=== PATIENT | female | born 1990 | race Caucasian/White ===

== ENCOUNTER 2018-10-01 15:11 | Emergency (ER) | payer BC ==
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
[2018-10-01 17:00] LABS: CHLORIDE,CL 104 mmol/L (98-107); SODIUM,NA 139 mmol/L (136-145)
--- NOTE | 2018-10-01 17:16 | US ---
INDICATION: Early . Bleeding TECHNIQUE: Ultrasound OB pelvis transvaginal. Real-time llanes-scale imaging of the pelvis was performed. COMPARISON: None available FINDINGS: The uterus is retroverted. The endometrium measures 1.2 cm, demonstrating heterogeneous echogenicity, containing mixed echogenicity material with foci of fluid. No discrete intrauterine gestational sac is seen. The right ovary measures 2.6 x 1.7 x 2.7 cm and the left ovary measures 3.0 x 1.3 x 2.6 cm. No adnexal mass is visualized. No significant free fluid is seen. IMPRESSION: No intrauterine gestation seen. Heterogeneous endometrium containing foci of fluid echogenicity. The findings could represent a spontaneous in progress, however an ectopic gestation, or somewhat less likely, an early viable intrauterine gestation, are not excluded. Correlate with beta hCG levels and short-term follow-up study. Dictated by Enrique Llanos MD @ 10/01/2018 5:10:47 PM Dictated by: Enrique Llanos MD @ 10/01/2018 17:13:24 (Electronically Signed)
[2018-10-01 18:33] VITALS: BP 110/67
== END 2018-10-01 18:22 | disposition home or self-care (01) ==
LOC: MW.ED 15:11
DX: O20.0 Threatened abortion (principal); Z3A.10 10 weeks gestation of pregnancy
CPT/HCPCS: 36415; 76801; 80053; 81001; 81025; 84702; 85025; 86850; 86900; 86901; 96372; 99284; J2792; 36430

== ENCOUNTER 2019-09-03 01:31 | Inpatient (IN) | payer BC ==
[2019-09-03] MEDS ORDERED: Sodium Chloride 0.9% 10 ML Syringe FLUSH PRN (01:39)
[2019-09-03] MEDS ORDERED: Sodium Chloride 0.9% 2.5 ML Syringe FLUSH PRN (01:39)
[2019-09-03] MEDS ORDERED: Lactated Ringers 1,000 ML IV ONE (01:39)
[2019-09-03] MEDS ORDERED: Oxytocin/0.9 % Sodium Chloride 30 UNIT/500 ML BAG IV SCH (01:45)
[2019-09-03] MEDS ORDERED: Morphine 4 MG/ML Syringe ONE (01:57)
[2019-09-03] MEDS ORDERED: Morphine 2 MG/ML SYRINGE IVPUSH ONE (01:57)
[2019-09-03] MEDS ORDERED: Oxytocin/0.9 % Sodium Chloride 30 UNIT/500 ML BAG ONE (02:00)
[2019-09-03] MEDS ORDERED: Ampicillin/Sulbactam Na 3 GM Vial ONE (02:01)
--- NOTE | 2019-09-03 02:01 | EDM.PDOC ---
ED HPI GENERAL MEDICAL PROBLEM - General Stated Complaint: RECENTLY HAD BABY; SEIZURES Time Seen by Provider: 09/03/19 01:35 Source of Information: Reports: EMS History Limitations: Reports: No Limitations - History of Present Illness INITIAL COMMENTS - FREE TEXT/NARRATIVE: 28-year-old female presents with hemorrhage. She delivered at 43 weeks 1 hour prior to arrival by antenna design engineer. She has not had OB work-up. She was reported to have 2 episodes of seizure, 1 of which was witnessed by EMS lasting about 1 minute. EMS noted large quantity of blood at the delivery site, the placenta was not delivered. HR = 130s with BP = 156/84 on scene. She denies history of seizures. She started laboring yesterday. ROS: A 10-point review of systems, other than pertinent positives and negatives as stated per HPI, is otherwise negative PHYSICAL EXAM General: AOx4, GCS = 15, mild distress HEENT: dry mucous membrane skin: pale Neck: supple, no meningismus, no Kernig or Brudzinski Cardiac: S1S2 tachycardic Respiratory: CTAB, no crackles or rales, no wheezing Abdomen: Soft, nontender, no rebound or guarding, nondistended, no pulsatile mass. : placenta not delivered. 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 ED EXAM - Physical Exam Exam: See Below Course - Vital Signs Last Recorded V/S: Last Vital Signs Temp 97.8 F 09/03/19 02:07 Pulse 133 H 09/03/19 02:07 Resp 28 H 09/03/19 02:07 BP 70/43 L 09/03/19 02:07 Pulse Ox 94 L 09/03/19 02:07 - Orders/Labs/Meds Orders: Active Orders 24 hr Category Date Time Status CORONAVIRUS COVID-19 PCR PHL Stat Lab 09/03/19 01:39 Ordered CULTURE BLOOD [BC] Stat Lab 09/03/19 02:34 Ordered CULTURE BLOOD [BC] Stat Lab 09/03/19 02:34 Ordered LACTIC ACID,WHOLE BLOOD [BG] Stat Lab 09/03/19 02:34 Ordered RED BLOOD CELLS APH2 LR [BBK] Stat Lab 09/03/19 01:37 Results RED BLOOD CELLS LP [BBK] Stat Lab 09/03/19 01:37 Results TYPE AND SCREEN [BBK] Stat Lab 09/03/19 01:37 Results Oxytocin/0.9 % Sodium Chloride [Oxytocin 30 Unit/500 ML Med 09/03/19 01:45 Active -NS] 30 unit in 500 ml IV TITRATE Sodium Chloride 0.9% [Saline Flush] Med 09/03/19 01:39 Active 10 ml FLUSH ASDIRECTED PRN Sodium Chloride 0.9% [Saline Flush] Med 09/03/19 01:39 Active 2.5 ml FLUSH ASDIRECTED PRN Blood Culture x2 Reflex Set [OM.PC] Stat Oth 09/03/19 02:34 Ordered Saline Lock Insert [OM.PC] Stat Oth 09/03/19 01:39 Ordered Medication Orders Oxytocin/Sodium Chloride (Oxytocin 30 Unit/500 Ml-Ns) 30 unit in 500 mls @ 2 mls/hr IV TITRATE MIKEL; Protocol Sodium Chloride (Saline Flush) 10 ml FLUSH ASDIRECTED PRN PRN Reason: Keep Vein Open Sodium Chloride (Saline Flush) 2.5 ml FLUSH ASDIRECTED PRN PRN Reason: Keep Vein Open Labs: Laboratory Tests 09/03/19 09/03/19 09/03/19 Range/Units 01:37 01:37 01:37 WBC 21.99 H (4.0-11.0) K/uL RBC 3.37 L (4.30-5.90) M/uL Hgb 10.5 L (12.0-16.0) g/dL Hct 31.6 L (36.0-46.0) % MCV 93.8 (80.0-98.0) fL MCH 31.2 (27.0-32.0) pg MCHC 33.2 (31.0-37.0) g/dL RDW Std Deviation 49.3 (28.0-62.0) fl RDW Coeff of Fahad 14 (11.0-15.0) % Plt Count 216 (150-400) K/uL MPV 11.60 (7.40-12.00) fL Neut % (Auto) 85.5 H (48.0-80.0) % Lymph % (Auto) 8.7 L (16.0-40.0) % [place] % (Auto) 5.8 (0.0-15.0) % Eos % (Auto) 0.0 (0.0-7.0) % Baso % (Auto) 0.0 (0.0-1.5) % Neut # (Auto) 18.8 H (1.4-5.7) K/uL Lymph # (Auto) 1.9 (0.6-2.4) K/uL [place] # (Auto) 1.3 H (0.0-0.8) K/uL Eos # (Auto) 0.0 (0.0-0.7) K/uL Baso # (Auto) 0.0 (0.0-0.1) K/uL Nucleated RBC % 0.0 /100WBC Nucleated RBCs # 0 K/uL INR 0.94 APTT 23.1 (18.6-31.3) SEC Sodium 132 L (136-145) mmol/L Potassium 3.7 (3.5-5.1) mmol/L Chloride 100 (98-107) mmol/L Carbon Dioxide 17.0 L (21.0-32.0) mmol/L BUN 7 (7.0-18.0) mg/dL Creatinine 1.0 (0.6-1.0) mg/dL Est Cr Clr Drug Dosing TNP Estimated GFR (MDRD) > 60.0 ml/min Glucose 182 H (74-106) mg/dL Calcium 8.6 (8.5-10.1) mg/dL Phosphorus 4.5 (2.6-4.7) mg/dL Magnesium 1.6 L (1.8-2.4) mg/dL Total Bilirubin 0.4 (0.2-1.0) mg/dL AST 27 (15-37) IU/L ALT 27 (14-63) IU/L Alkaline Phosphatase 174 H (46-116) U/L Total Protein 5.4 L (6.4-8.2) g/dL Albumin 2.2 L (3.4-5.0) g/dL Globulin 3.2 (2.6-4.0) g/dL Albumin/Globulin Ratio 0.7 L (0.9-1.6) Blood Type Antibody Screen Crossmatch 09/03/19 Range/Units 01:37 WBC (4.0-11.0) K/uL RBC (4.30-5.90) M/uL Hgb (12.0-16.0) g/dL Hct (36.0-46.0) % MCV (80.0-98.0) fL MCH (27.0-32.0) pg MCHC (31.0-37.0) g/dL RDW Std Deviation (28.0-62.0) fl RDW Coeff of Fahad (11.0-15.0) % Plt Count (150-400) K/uL MPV (7.40-12.00) fL Neut % (Auto) (48.0-80.0) % Lymph % (Auto) (16.0-40.0) % [place] % (Auto) (0.0-15.0) % Eos % (Auto) (0.0-7.0) % Baso % (Auto) (0.0-1.5) % Neut # (Auto) (1.4-5.7) K/uL Lymph # (Auto) (0.6-2.4) K/uL [place] # (Auto) (0.0-0.8) K/uL Eos # (Auto) (0.0-0.7) K/uL Baso # (Auto) (0.0-0.1) K/uL Nucleated RBC % /100WBC Nucleated RBCs # K/uL INR APTT (18.6-31.3) SEC Sodium (136-145) mmol/L Potassium (3.5-5.1) mmol/L Chloride (98-107) mmol/L Carbon Dioxide (21.0-32.0) mmol/L BUN (7.0-18.0) mg/dL Creatinine (0.6-1.0) mg/dL Est Cr Clr Drug Dosing Estimated GFR (MDRD) ml/min Glucose (74-106) mg/dL Calcium (8.5-10.1) mg/dL Phosphorus (2.6-4.7) mg/dL Magnesium (1.8-2.4) mg/dL Total Bilirubin (0.2-1.0) mg/dL AST (15-37) IU/L ALT (14-63) IU/L Alkaline Phosphatase (46-116) U/L Total Protein (6.4-8.2) g/dL Albumin (3.4-5.0) g/dL Globulin (2.6-4.0) g/dL Albumin/Globulin Ratio (0.9-1.6) Blood Type O NEGATIVE Antibody Screen NEGATIVE Crossmatch See Detail Meds: Medications Generic Name Dose Route Start Last Admin Trade Name Freq PRN Reason Stop Dose Admin Oxytocin/Sodium Chloride 30 unit in 500 mls @ 2 mls/hr 09/03/19 01:45 Oxytocin 30 Unit/500 Ml-Ns IV TITRATE MIKEL Protocol 2 MUNITS/MIN Sodium Chloride 10 ml 09/03/19 01:39 Saline Flush FLUSH ASDIRECTED PRN Keep Vein Open Sodium Chloride 2.5 ml 09/03/19 01:39 Saline Flush FLUSH ASDIRECTED PRN Keep Vein Open Discontinued Medications Generic Name Dose Route Start Last Admin Trade Name Freq PRN Reason Stop Dose Admin Ampicillin Sodium/Sulbactam Sodium Confirm 09/03/19 02:01 Unasyn Administered 09/03/19 02:02 Dose 3 gm .ROUTE .STK-MED ONE Lactated Ringer's 1,000 mls @ 999 mls/hr 09/03/19 01:39 Ringers, Lactated IV 09/03/19 02:39 .BOLUS ONE Oxytocin/Sodium Chloride Confirm 09/03/19 02:00 Oxytocin 30 Unit/500 Ml-Ns Administered 09/03/19 02:01 Dose 30 unit in 500 mls @ as directed .ROUTE .STK-MED ONE Sodium Chloride Confirm 09/03/19 02:03 Normal Saline Administered 09/03/19 02:04 Dose 50 mls @ as directed .ROUTE .STK-MED ONE Sodium Chloride Confirm 09/03/19 02:03 Normal Saline Administered 09/03/19 02:04 Dose 100 mls @ as directed .ROUTE .STK-MED ONE Lidocaine HCl Confirm 09/03/19 02:16 Xylocaine 1% Administered 09/03/19 02:17 Dose 50 ml .ROUTE .STK-MED ONE Morphine Sulfate 2 mg 09/03/19 01:57 Morphine IVPUSH 09/03/19 01:58 ONETIME ONE Morphine Sulfate Confirm 09/03/19 01:57 Morphine Administered 09/03/19 01:58 Dose 4 mg .ROUTE .STK-MED ONE - Re-Assessments/Exams Free Text/Narrative Re-Assessment/Exam: 09/03/19 01:36 - Consulted OB, Dr. Rudd, she is on the way into the ER. Patient started on 2L IV fluids through rapid infuser, Methergine 0.2mg IM. 09/03/19 01:40 - Placenta delivered intact by OB RN. 09/03/19 01:45 - Given Pitocin 10mg IM, started on 1U O negative bloord. 09/03/19 01:56 - Started on 1gm IV TXA. 09/03/19 02:48 - case discussed with Dr. Rudd, who agrees to admit to observation and assume care at this point. She did repair a grade 2 vaginal tear. Her documentation supersedes all other documentation on this patient with regard to any conflicts or discrepancies from this point forward. Any emergency conditions have been treated to the ability of the ED prior to admission. Departure - Discharge Information Referrals: PCP,None [Primary Care Provider] - Critical Care Note - Critical Care Note Total Time (mins): 76 Comments: Critical Care: The high probability of sudden, clinically significant deterioration in the patient's condition required the highest level of my preparedness to intervene urgently. The services I provided to this patient were to treat and/or prevent clinically significant deterioration. Services included the following: chart data review, reviewing nursing notes and/or old charts, documentation time, rehab consultant collaboration regarding findings and treatment options, medication orders and management, direct patient care, vital sign assessments and ordering, interpreting and reviewing diagnostic studies/lab tests. Aggregate critical care time includes only time during which I was engaged in work directly related to the patient's care, as described above, whether at the bedside or elsewhere in the Emergency Department. It did not include time spent performing other reported procedures or the services of residents, students, nurses or physician assistants. Frequent interventions and/or frequent repeat evaluations were required as well as counseling and coordination of care regarding prognosis, treatments, and discussions with patient, staff and consultants. Sepsis Event Note (ED) - Focused Exam Vital Signs: Vital Signs Temp Pulse Resp BP Pulse Ox 09/03/19 02:07 97.8 F 133 H 28 H 70/43 L 94 L - My Orders Last 24 Hours: My Active Orders 09/03/19 01:37 RED BLOOD CELLS APH2 LR [BBK] Stat RED BLOOD CELLS LP [BBK] Stat TYPE AND SCREEN [BBK] Stat 09/03/19 01:39 CORONAVIRUS COVID-19 PCR PHL Stat Sodium Chloride 0.9% [Saline Flush] 10 ml FLUSH ASDIRECTED PRN Sodium Chloride 0.9% [Saline Flush] 2.5 ml FLUSH ASDIRECTED PRN Saline Lock Insert [OM.PC] Stat 09/03/19 01:45 Oxytocin/0.9 % Sodium Chloride [Oxytocin 30 Unit/500 ML-NS] 30 unit in 500 ml IV TITRATE 09/03/19 02:34 CULTURE BLOOD [BC] Stat CULTURE BLOOD [BC] Stat LACTIC ACID,WHOLE BLOOD [BG] Stat Blood Culture x2 Reflex Set [OM.PC] Stat - Assessment/Plan Last 24 Hours: My Active Orders 09/03/19 01:37 RED BLOOD CELLS APH2 LR [BBK] Stat RED BLOOD CELLS LP [BBK] Stat TYPE AND SCREEN [BBK] Stat 09/03/19 01:39 CORONAVIRUS COVID-19 PCR PHL Stat Sodium Chloride 0.9% [Saline Flush] 10 ml FLUSH ASDIRECTED PRN Sodium Chloride 0.9% [Saline Flush] 2.5 ml FLUSH ASDIRECTED PRN Saline Lock Insert [OM.PC] Stat 09/03/19 01:45 Oxytocin/0.9 % Sodium Chloride [Oxytocin 30 Unit/500 ML-NS] 30 unit in 500 ml IV TITRATE 09/03/19 02:34 CULTURE BLOOD [BC] Stat CULTURE BLOOD [BC] Stat LACTIC ACID,WHOLE BLOOD [BG] Stat Blood Culture x2 Reflex Set [OM.PC] Stat
[2019-09-03] MEDS ORDERED: Sodium Chloride 0.9% 0 ML ONE (02:03)
[2019-09-03] MEDS ORDERED: Sodium Chloride 0.9% 100 ML ONE (02:03)
[2019-09-03] MEDS ORDERED: Lidocaine 1% 50 ML MDV ONE (02:16)
[2019-09-03 02:20] LABS: BLOOD UREA NITROGEN,BUN 7 mg/dL (7.0-18.0); CHLORIDE,CL 100 mmol/L (98-107); GLUCOSE RANDOM 182 mg/dL (74-106); POTASSIUM,K 3.7 mmol/L (3.5-5.1); SODIUM,NA 132 mmol/L (136-145)
[2019-09-03] MEDS ORDERED: Bisacodyl 10 MG Supp RECTAL PRN (03:14)
[2019-09-03] MEDS ORDERED: Witch Hazel Medicated Pads 40/Jar TOP PRN (03:14)
[2019-09-03] MEDS ORDERED: Benzocaine/Menthol 20%-0.5% Spray 78 GM Cannister TOP PRN (03:14)
[2019-09-03] MEDS ORDERED: Ibuprofen 400 MG Tab PO PRN (03:14)
[2019-09-03] MEDS ORDERED: Acetaminophen 500 MG Tab PO PRN (03:14)
[2019-09-03] MEDS ORDERED: Lanolin 100% Cream 7 GM Tube TOP PRN (03:14)
[2019-09-03] MEDS ORDERED: oxyCODONE 5 MG Tab PO PRN (03:14)
--- NOTE | 2019-09-03 03:27 | PCM.LDHP ---
L&D History of Present Illness - General Date of Service: 09/03/19 Admit Problem/Dx: Patient Status Order with Admit Dx/Problem 09/03/19 02:58 Admission Status [Patient Status] [ADT] Stat 09/03/19 03:14 Patient Status [ADT] Routine Admission Diagnosis/Problem Admission Diagnosis/Problem hemorrhage Source of Information: Patient History Limitations: Reports: Other (Patient , Spouse and LayMidwife) - History of Present Illness Introduction:: 28yo P1 s/p brought in by EMS. Patient was 43weeks and was managed at home by a laymidwife. she SROM yesterday about 1 pm and delivered today about 12 midnight. she pushed for about 5 hours. After bleeding lap layer stated she was bleeding alot and she passed out, she also had about a 30sec seizure. she had taken her BP during delivery and stated it was normal. she had only 1BP 140s/80s. She delivered a 8lb female . she was brought in hypotensive by EMS and was stated she had BP about 70/50 and tachycardia to 130s. Patient was receiving blood when she was evaluated . PMH: Nil PSH; Nil NKDA FSH - non contributory Exam; General; Lethargic but responding to questions Chest: CTA BL CVS: S1 s2 no murmurs Abdomen; Uterus firm Pelvic; All linen soaked with blood , 2nd degree laceration Uterus contracted firm , Cervical sweep - normal intact cervix VSS; 110s - 130s/ 60 - 80s , HR 100s Labs : h/h;12/17 AST / ALT / Cr - wnl A/P 28yo P1 s/p PPD0 , hemorrhage , Seizure episode X 2, 2nd degree laceration RH negative Prolonged SROM on 1uPRBC Plan Admit Unasyn 3g q 6 repeat CBC in Am Transfuse 2nd unit PRBC Rhogam Repair of second degree laceration Encourage breastpumping IVF Regular diet - Related Data Allergies/Adverse Reactions: Allergies Allergy/AdvReac Type Severity Reaction Status Date / Time No Known Allergies Allergy Verified 09/03/19 02:07 Home Medications: Home Meds Comb No.42/Folic Acid [Prena1 Chew Tablet] 1.4 mg PO DAILY 10/01/18 [History] Past Medical History Cardiovascular History: Reports: None Respiratory History: Reports: None Gastrointestinal History: Reports: None Genitourinary History: Reports: None 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: Musculoskeletal History: Reports: None Psychiatric History: Reports: None Endocrine/Metabolic History: Reports: None Hematologic History: Reports: None Dermatologic History: Reports: None - Infectious Disease History Infectious Disease History: Reports: Chicken Pox - Past Surgical History HEENT Surgical History: Reports: Tonsillectomy Social & Family History - Family History Family Medical History: Noncontributory - Tobacco Use Smoking Status *Q: Unknown Ever Smoked - Caffeine Use Caffeine Use: Reports: None H&P Review of Systems - Review of Systems: Review Of Systems: Comprehensive ROS is negative, except as noted in HPI. L&D Exam - Exam Exam: See Below - Vital Signs Vital Signs: Last Vital Signs Temp 36.6 C 09/03/19 02:07 Pulse 133 H 09/03/19 02:07 Resp 28 H 09/03/19 02:07 BP 70/43 L 09/03/19 02:07 Pulse Ox 94 L 09/03/19 02:07 - Patient Data Lab Results Last 24 hrs: Laboratory Results - last 24 hr 09/03/19 09/03/19 09/03/19 Range/Units 01:37 01:37 01:37 WBC 21.99 H (4.0-11.0) K/uL RBC 3.37 L (4.30-5.90) M/uL Hgb 10.5 L (12.0-16.0) g/dL Hct 31.6 L (36.0-46.0) % MCV 93.8 (80.0-98.0) fL MCH 31.2 (27.0-32.0) pg MCHC 33.2 (31.0-37.0) g/dL RDW Std Deviation 49.3 (28.0-62.0) fl RDW Coeff of Fahad 14 (11.0-15.0) % Plt Count 216 (150-400) K/uL MPV 11.60 (7.40-12.00) fL Neut % (Auto) 85.5 H (48.0-80.0) % Lymph % (Auto) 8.7 L (16.0-40.0) % [place] % (Auto) 5.8 (0.0-15.0) % Eos % (Auto) 0.0 (0.0-7.0) % Baso % (Auto) 0.0 (0.0-1.5) % Neut # (Auto) 18.8 H (1.4-5.7) K/uL Lymph # (Auto) 1.9 (0.6-2.4) K/uL [place] # (Auto) 1.3 H (0.0-0.8) K/uL Eos # (Auto) 0.0 (0.0-0.7) K/uL Baso # (Auto) 0.0 (0.0-0.1) K/uL Nucleated RBC % 0.0 /100WBC Nucleated RBCs # 0 K/uL INR 0.94 APTT 23.1 (18.6-31.3) SEC Sodium 132 L (136-145) mmol/L Potassium 3.7 (3.5-5.1) mmol/L Chloride 100 (98-107) mmol/L Carbon Dioxide 17.0 L (21.0-32.0) mmol/L BUN 7 (7.0-18.0) mg/dL Creatinine 1.0 (0.6-1.0) mg/dL Est Cr Clr Drug Dosing TNP Estimated GFR (MDRD) > 60.0 ml/min Glucose 182 H (74-106) mg/dL Calcium 8.6 (8.5-10.1) mg/dL Phosphorus 4.5 (2.6-4.7) mg/dL Magnesium 1.6 L (1.8-2.4) mg/dL Total Bilirubin 0.4 (0.2-1.0) mg/dL AST 27 (15-37) IU/L ALT 27 (14-63) IU/L Alkaline Phosphatase 174 H (46-116) U/L Total Protein 5.4 L (6.4-8.2) g/dL Albumin 2.2 L (3.4-5.0) g/dL Globulin 3.2 (2.6-4.0) g/dL Albumin/Globulin Ratio 0.7 L (0.9-1.6) Blood Type Antibody Screen Crossmatch 09/03/19 Range/Units 01:37 WBC (4.0-11.0) K/uL RBC (4.30-5.90) M/uL Hgb (12.0-16.0) g/dL Hct (36.0-46.0) % MCV (80.0-98.0) fL MCH (27.0-32.0) pg MCHC (31.0-37.0) g/dL RDW Std Deviation (28.0-62.0) fl RDW Coeff of Fahad (11.0-15.0) % Plt Count (150-400) K/uL MPV (7.40-12.00) fL Neut % (Auto) (48.0-80.0) % Lymph % (Auto) (16.0-40.0) % [place] % (Auto) (0.0-15.0) % Eos % (Auto) (0.0-7.0) % Baso % (Auto) (0.0-1.5) % Neut # (Auto) (1.4-5.7) K/uL Lymph # (Auto) (0.6-2.4) K/uL [place] # (Auto) (0.0-0.8) K/uL Eos # (Auto) (0.0-0.7) K/uL Baso # (Auto) (0.0-0.1) K/uL Nucleated RBC % /100WBC Nucleated RBCs # K/uL INR APTT (18.6-31.3) SEC Sodium (136-145) mmol/L Potassium (3.5-5.1) mmol/L Chloride (98-107) mmol/L Carbon Dioxide (21.0-32.0) mmol/L BUN (7.0-18.0) mg/dL Creatinine (0.6-1.0) mg/dL Est Cr Clr Drug Dosing Estimated GFR (MDRD) ml/min Glucose (74-106) mg/dL Calcium (8.5-10.1) mg/dL Phosphorus (2.6-4.7) mg/dL Magnesium (1.8-2.4) mg/dL Total Bilirubin (0.2-1.0) mg/dL AST (15-37) IU/L ALT (14-63) IU/L Alkaline Phosphatase (46-116) U/L Total Protein (6.4-8.2) g/dL Albumin (3.4-5.0) g/dL Globulin (2.6-4.0) g/dL Albumin/Globulin Ratio (0.9-1.6) Blood Type O NEGATIVE Antibody Screen NEGATIVE Crossmatch See Detail Result Diagrams: 09/03/19 01:37 09/03/19 01:37 - Problem List (1) hemorrhage SNOMED Code(s): 23584043 ICD Code: O72.1 - OTHER IMMEDIATE HEMORRHAGE Status: Acute Current Visit: Yes Problem List Initiated/Reviewed/Updated: Yes Orders Last 24hrs: Active Orders 24 hr Category Date Time Status Admission Status [Patient Status] [ADT] Stat ADT 09/03/19 02:58 Active Patient Status [ADT] Routine ADT 09/03/19 03:14 Ordered May Shower [RC] ASDIRECTED Care 09/03/19 03:14 Ordered Up ad Adela [RC] ASDIRECTED Care 09/03/19 03:14 Ordered Vital Signs [RC] PER UNIT ROUTINE Care 09/03/19 03:14 Ordered Regular Diet [DIET] Diet 09/03/19 Breakfast Ordered CBC WITH AUTO DIFF [HEME] Routine Lab 09/03/19 07:00 Ordered CORONAVIRUS COVID-19 NETO [MOLEC] Stat Lab 09/03/19 03:00 Received CULTURE BLOOD [BC] Stat Lab 09/03/19 02:34 Ordered CULTURE BLOOD [BC] Stat Lab 09/03/19 02:34 Ordered LACTIC ACID,WHOLE BLOOD [BG] Stat Lab 09/03/19 02:34 Ordered RED BLOOD CELLS APH2 LR [BBK] Stat Lab 09/03/19 01:37 Results RED BLOOD CELLS LP [BBK] Stat Lab 09/03/19 01:37 Results RHIG WORKUP, [BBK] Routine Lab 09/03/19 07:00 Ordered TYPE AND SCREEN [BBK] Stat Lab 09/03/19 01:37 Results Acetaminophen [Tylenol Extra Strength] Med 09/03/19 03:14 Ordered 1,000 mg PO Q4H PRN Acetaminophen [Tylenol Extra Strength] Med 09/03/19 03:14 Ordered 500 mg PO Q4H PRN Ampicillin/Sulbactam Na [Unasyn] 3 gm Med 09/03/19 09:00 Ordered Sodium Chloride 0.9% [Normal Saline] 100 ml IV Q6H Benzocaine/Menthol [Dermoplast Pain Relief 20%-0.5% Med 09/03/19 03:14 Ordered Vadito] 78 gm TOP ASDIRECTED PRN Docusate Sodium [Colace] Med 09/03/19 03:14 Ordered 100 mg PO BID PRN Ibuprofen [Motrin] Med 09/03/19 03:14 Ordered 400 mg PO Q4H PRN Ibuprofen [Motrin] Med 09/03/19 03:14 Ordered 800 mg PO Q6H PRN Lanolin [Lansinoh HPA] Med 09/03/19 03:14 Ordered See Dose Instructions TOP ASDIRECTED PRN Oxytocin/0.9 % Sodium Chloride [Oxytocin 30 Unit/500 ML Med 09/03/19 01:45 Active -NS] 30 unit in 500 ml IV TITRATE Sodium Chloride 0.9% [Saline Flush] Med 09/03/19 01:39 Active 10 ml FLUSH ASDIRECTED PRN Sodium Chloride 0.9% [Saline Flush] Med 09/03/19 01:39 Active 2.5 ml FLUSH ASDIRECTED PRN bisacodyL [Dulcolax] Med 09/03/19 03:14 Ordered 10 mg RECTAL ONETIME PRN oxyCODONE Med 09/03/19 03:14 Ordered 5 mg PO Q2H PRN witch Janeth [Tucks] Med 09/03/19 03:14 Ordered 1 pad TOP ASDIRECTED PRN Assess Lochia [WOMSER] Per Unit Routine Ot 09/03/19 03:14 Ordered Assess Uterine Involution [WOMSER] Per Unit Routine Ot 09/03/19 03:14 Ordered Blood Culture x2 Reflex Set [OM.PC] Stat Ot 09/03/19 02:34 Ordered Breast Pump [WOMSER] Per Unit Routine Ot 09/03/19 03:14 Ordered Perineal Care [OM.PC] Per Unit Routine Ot 09/03/19 03:16 Ordered Peripheral IV Discontinue [OM.PC] Routine Ot 09/03/19 03:14 Ordered Saline Lock Insert [OM.PC] Stat Ot 09/03/19 01:39 Ordered Resuscitation Status Routine Resus Stat 09/03/19 03:14 Ordered Medication Orders Acetaminophen (Tylenol Extra Strength) 500 mg PO Q4H PRN PRN Reason: Pain Acetaminophen (Tylenol Extra Strength) 1,000 mg PO Q4H PRN PRN Reason: Pain Benzocaine/Menthol (Dermoplast Pain Relief 20%-0.5% Vadito) 78 gm TOP ASDIRECTED PRN PRN Reason: Perineal Comfort Measure Bisacodyl (Dulcolax) 10 mg RECTAL ONETIME PRN PRN Reason: Constipation Docusate Sodium (Colace) 100 mg PO BID PRN PRN Reason: Constipation Emollient Ointment (Lansinoh Hpa) 0 gm TOP ASDIRECTED PRN PRN Reason: Sore Nipples Oxytocin/Sodium Chloride (Oxytocin 30 Unit/500 Ml-Ns) 30 unit in 500 mls @ 2 mls/hr IV TITRATE MIKEL; Protocol Ampicillin Sodium/Sulbactam (Sodium 3 gm/ Sodium Chloride) 100 mls @ 200 mls/hr IV Q6H MIKLE Ibuprofen (Motrin) 400 mg PO Q4H PRN PRN Reason: Pain Ibuprofen (Motrin) 800 mg PO Q6H PRN PRN Reason: Pain Oxycodone HCl (Oxycodone) 5 mg PO Q2H PRN PRN Reason: Pain Sodium Chloride (Saline Flush) 10 ml FLUSH ASDIRECTED PRN PRN Reason: Keep Vein Open Sodium Chloride (Saline Flush) 2.5 ml FLUSH ASDIRECTED PRN PRN Reason: Keep Vein Open Witch Janeth (Tucks) 1 pad TOP ASDIRECTED PRN PRN Reason: comfort care
[2019-09-03] MEDS: Ibuprofen 800 MG Tab PO PRN (06:12)
[2019-09-03] MEDS: Docusate Sodium 100 MG Cap PO PRN (06:12)
--- NOTE | 2019-09-03 08:34 | PCM.SN.2 ---
- Free Text/Narrative Note: 28 yo s/p at home , PPH , Endometritis - elevated WBC count . s/p 2UPRBC ,RH negative Patient seen at bedside , she denies any complains this am BP - all within normal limits Exam: General: NAD Chest: CTA BL CVS: S1 S2 no murmurs Abdomen Gravid Pelvic; Normal lochia A/P , PPH - now stable , Elevated white count , Rh negative Plan RHogam today Unasyn q 6 CBC in AM Seizure precaution Continue to monitor BP
[2019-09-03] MEDS ORDERED: Ampicillin/Sulbactam Na 3 GM in Sodium Chloride 0.9% 100 ML IV SCH (09:00)
[2019-09-03] MEDS: Ampicillin/Sulbactam Na 3 GM in Sodium Chloride 0.9% 100 ML IV SCH ×3 (09:31→21:31)
[2019-09-03] MEDS: Acetaminophen 500 MG Tab PO PRN ×2 (18:50→22:50)
[2019-09-03] MEDS ORDERED: Oxytocin 10 Units/1 ML SDV ONE (22:14)
[2019-09-04] MEDS: Acetaminophen 500 MG Tab PO PRN ×2 (04:13→09:09)
[2019-09-04] MEDS: Ampicillin/Sulbactam Na 3 GM in Sodium Chloride 0.9% 100 ML IV SCH (04:14)
[2019-09-04 08:09] VITALS: BP 105/59; PULSE 89
--- NOTE | 2019-09-04 08:32 | PCM.PNPP ---
- General Info Date of Service: 09/04/19 Subjective Update: Patient reports bleeding significantly decreased. Denies dizziness with ambulation. Denies fevers/chills. Functional Status: Reports: Pain Controlled, Tolerating Diet, Ambulating, Urinating - Review of Systems General: Reports: No Symptoms HEENT: Reports: No Symptoms Pulmonary: Reports: No Symptoms Cardiovascular: Reports: No Symptoms Gastrointestinal: Reports: No Symptoms Genitourinary: Reports: No Symptoms Musculoskeletal: Reports: No Symptoms Skin: Reports: No Symptoms Neurological: Reports: No Symptoms Psychiatric: Reports: No Symptoms - Patient Data Vital Signs - Most Recent: Last Vital Signs Temp 36.2 C 09/04/19 08:00 Pulse 89 09/04/19 08:00 Resp 14 09/04/19 08:00 BP 105/59 L 09/04/19 08:00 Pulse Ox 97 09/04/19 08:00 Weight - Most Recent: 83.915 kg I&O - Last 24 Hours: Intake & Output 09/03/19 09/04/19 09/04/19 22:59 06:59 14:59 Intake Total 2 Balance 2 Lab Results - Last 24 Hours: Laboratory Results - last 24 hr 09/03/19 09/03/19 09/04/19 Range/Units 01:37 07:16 05:50 WBC 16.23 H (4.0-11.0) K/uL RBC 3.24 L (4.30-5.90) M/uL Hgb 9.9 L (12.0-16.0) g/dL Hct 29.4 L (36.0-46.0) % MCV 90.7 (80.0-98.0) fL MCH 30.6 (27.0-32.0) pg MCHC 33.7 (31.0-37.0) g/dL RDW Std Deviation 51.7 (28.0-62.0) fl RDW Coeff of Fahad 16 H (11.0-15.0) % Plt Count 155 (150-400) K/uL MPV 11.00 (7.40-12.00) fL Neut % (Auto) 73.2 (48.0-80.0) % Lymph % (Auto) 16.8 (16.0-40.0) % Ness % (Auto) 8.9 (0.0-15.0) % Eos % (Auto) 0.9 (0.0-7.0) % Baso % (Auto) 0.2 (0.0-1.5) % Neut # (Auto) 11.9 H (1.4-5.7) K/uL Lymph # (Auto) 2.7 H (0.6-2.4) K/uL Ness # (Auto) 1.5 H (0.0-0.8) K/uL Eos # (Auto) 0.2 (0.0-0.7) K/uL Baso # (Auto) 0.0 (0.0-0.1) K/uL Nucleated RBC % 0.0 /100WBC Nucleated RBCs # 0 K/uL Blood Type O NEGATIVE Antibody Screen NEGATIVE Screen NEGATIVE (NEGATIVE) RhIG Candidate? YES Rhogam Indicated YES, BABY RH UNKNOWN H Crossmatch See Detail Micro Results - Last 24 Hours: Microbiology 09/03/19 03:24 Aerobic Blood Culture - Preliminary Blood - Venous - Lab Draw NO GROWTH AFTER 1 DAY Anaerobic Blood Culture - Preliminary NO GROWTH AFTER 1 DAY 09/03/19 03:19 Aerobic Blood Culture - Preliminary Blood - Venous NO GROWTH AFTER 1 DAY Anaerobic Blood Culture - Preliminary NO GROWTH AFTER 1 DAY Med Orders - Current: Current Medications Acetaminophen (Tylenol Extra Strength) 500 mg PO Q4H PRN PRN Reason: Pain Acetaminophen (Tylenol Extra Strength) 1,000 mg PO Q4H PRN PRN Reason: Pain Last Admin: 09/04/19 04:13 Dose: 1,000 mg Documented by: Benzocaine/Menthol (Dermoplast Pain Relief 20%-0.5% [place]) 78 gm TOP ASDIRECTED PRN PRN Reason: Perineal Comfort Measure Last Admin: 09/03/19 06:13 Dose: 1 spray Documented by: Bisacodyl (Dulcolax) 10 mg RECTAL ONETIME PRN PRN Reason: Constipation Docusate Sodium (Colace) 100 mg PO BID PRN PRN Reason: Constipation Last Admin: 09/03/19 06:12 Dose: 100 mg Documented by: Emollient Ointment (Lansinoh Hpa) 0 gm TOP ASDIRECTED PRN PRN Reason: Sore Nipples Oxytocin/Sodium Chloride (Oxytocin 30 Unit/500 Ml-Ns) 30 unit in 500 mls @ 2 mls/hr IV TITRATE MIKEL; Protocol Ampicillin Sodium/Sulbactam (Sodium 3 gm/ Sodium Chloride) 100 mls @ 200 mls/hr IV Q6H MIKEL Last Admin: 09/04/19 04:14 Dose: 200 mls/hr Documented by: Ibuprofen (Motrin) 400 mg PO Q4H PRN PRN Reason: Pain Ibuprofen (Motrin) 800 mg PO Q6H PRN PRN Reason: Pain Last Admin: 09/03/19 06:12 Dose: 800 mg Documented by: Oxycodone HCl (Oxycodone) 5 mg PO Q2H PRN PRN Reason: Pain Sodium Chloride (Saline Flush) 10 ml FLUSH ASDIRECTED PRN PRN Reason: Keep Vein Open Sodium Chloride (Saline Flush) 2.5 ml FLUSH ASDIRECTED PRN PRN Reason: Keep Vein Open Witch Janeth (Tucks) 1 pad TOP ASDIRECTED PRN PRN Reason: comfort care Last Admin: 09/03/19 06:14 Dose: 1 pad Documented by: Discontinued Medications Ampicillin Sodium/Sulbactam Sodium (Unasyn) Confirm Administered Dose 3 gm .ROUTE .STK-MED ONE Stop: 09/03/19 02:02 Lactated Ringer's (Ringers, Lactated) 1,000 mls @ 999 mls/hr IV .BOLUS ONE Stop: 09/03/19 02:39 Oxytocin/Sodium Chloride (Oxytocin 30 Unit/500 Ml-Ns) Confirm Administered Dose 30 unit in 500 mls @ as directed .ROUTE .STK-MED ONE Stop: 09/03/19 02:01 Sodium Chloride (Normal Saline) Confirm Administered Dose 50 mls @ as directed .ROUTE .STK-MED ONE Stop: 09/03/19 02:04 Sodium Chloride (Normal Saline) Confirm Administered Dose 100 mls @ as directed .ROUTE .STK-MED ONE Stop: 09/03/19 02:04 Ampicillin Sodium/Sulbactam (Sodium 3 gm/ Sodium Chloride) 100 mls @ 200 mls/hr IV Q6H [facility] Lidocaine HCl (Xylocaine 1%) Confirm Administered Dose 50 ml .ROUTE .STK-MED ONE Stop: 09/03/19 02:17 Morphine Sulfate (Morphine) 2 mg IVPUSH ONETIME ONE Stop: 09/03/19 01:58 Morphine Sulfate (Morphine) Confirm Administered Dose 4 mg .ROUTE .STK-MED ONE Stop: 09/03/19 01:58 Oxytocin (Pitocin) Confirm Administered Dose 10 unit .ROUTE .STK-MED ONE Stop: 09/03/19 22:15 Tranexamic Acid (Cyklokapron) Confirm Administered Dose 1,000 mg .ROUTE .STK-MED ONE Stop: 09/03/19 22:12 - Interaction Infant Disposition, : at home Interaction: Unable to Hold at this Time Feeding: Other (see below) ( at home) - Recovery Exam Fundal Tone: Firm Fundal Level: 1 Fingerbreadths Below Umbilicus Fundal Placement: Midline Lochia Amount: Scant Lochia Color: Rubra/Red Other Perinuem Description: 2nd degree episiotomy Bladder Status: Voiding Urinary Elimination: Voided - Exam General: Alert, Oriented Neck: Supple Lungs: Normal Respiratory Effort GI/Abdominal Exam: Soft, Non-Tender, No Distention Extremities: Non-Tender Skin: Warm, Dry, Intact Neurological: No New Focal Deficit Psy/Mental Status: Alert, Normal Affect, Normal Mood - Problem List & Annotations (1) hemorrhage SNOMED Code(s): 85792616 Code(s): O72.1 - OTHER IMMEDIATE HEMORRHAGE Status: Acute Current Visit: Yes - Problem List Review Problem List Initiated/Reviewed/Updated: Yes - My Orders Last 24 Hours: My Active Orders 09/04/19 08:28 Ready for Discharge [RC] PER UNIT ROUTINE - Assessment Assessment:: 28yo P1 s/p at home with subsequent hemorrhage and possible seizure. Second degree repair and removal of placenta in hospital. Received 2 units packed RBCs for anemia. Received Unasyn for 24 hours due to meconium-stained membranes and uterine exams. - Plan Plan:: 1. Anemia - hemoglobin stable after 2 units packed RBCs, denies symptoms 2. Finish 24-hour course of antibiotics 3. Seizure precautions 4. Dispo - desires discharge home today, reviewed discharge instructions
[2019-09-04] MEDS: Ibuprofen 800 MG Tab PO PRN (09:11)
[2019-09-04] MEDS: Docusate Sodium 100 MG Cap PO PRN (09:12)
[2019-09-06] MEDS ORDERED: Sodium Chloride 0.9% 1,000 ML IV ONE ×2 (08:35→08:38)
== END 2019-09-04 12:50 | disposition home or self-care (01) | DRG 560 ==
LOC: MW.ED 01:31 → MW.OB 02:58 → OBSVTOIN 03:14
PROVIDERS: ADMIT Obstetrics & Gynecology; ATTEND Obstetrics & Gynecology
PROC: 10E0XZZ Delivery of Products of Conception, External Approach (ICD-10-PCS; principal; 2019-09-03)
PROC: 0KQM0ZZ Repair Perineum Muscle, Open Approach (ICD-10-PCS; 2019-09-03)
PROC: 30233N1 Transfusion of Nonautologous Red Blood Cells into Peripheral Vein, Percutaneous Approach (ICD-10-PCS; 2019-09-03)
DX: O48.1 Prolonged pregnancy (principal); Z37.0 Single live birth; Z3A.49 Greater than 42 weeks gestation of pregnancy; O72.1 Other immediate postpartum hemorrhage; O77.0 Labor and delivery complicated by meconium in amniotic fluid; O99.02 Anemia complicating childbirth; D64.9 Anemia, unspecified; O99.89 Other specified diseases and conditions complicating pregnancy, childbirth and the puerperium; Z11.59 Encounter for screening for other viral diseases; R56.9 Unspecified convulsions; O70.1 Second degree perineal laceration during delivery
CPT/HCPCS: 36415; 80053; 83605; 83735; 84100; 85025; 85460; 85610; 85730; 87040; 96365; 96367; 96372; 96375; 99291; A9270-GY; J0295; J2001; J2270; J2590; J2792; J7050; P9016; U0002

== ENCOUNTER 2021-04-04 22:42 | Emergency (ER) | payer BC, OTHER ==
[2021-04-05 00:25] LABS: BLOOD UREA NITROGEN,BUN 8 mg/dL (7.0-18.0); CARBON DIOXIDE,CO2 23.6 mmol/L (21.0-32.0); CHLORIDE,CL 102 mmol/L (98-107); GLUCOSE RANDOM 91 mg/dL (74-106); POTASSIUM,K 3.7 mmol/L (3.5-5.1); SODIUM,NA 138 mmol/L (136-145)
[2021-04-05 00:50] VITALS: BP 110/60; PULSE 78
== END 2021-04-05 00:48 | disposition home or self-care (01) ==
LOC: MW.ED 22:42
DX: O99.511 Diseases of the respiratory system complicating pregnancy, first trimester (principal); R06.00 Dyspnea, unspecified; R53.83 Other fatigue; Z3A.01 Less than 8 weeks gestation of pregnancy
CPT/HCPCS: 36415; 71045; 71045-26; 80053; 83735; 83880; 84439; 84443; 84484; 84702; 85025; 86850; 86900; 86901; 93005; 99284-25

== ENCOUNTER 2021-07-31 17:39 | Emergency (ER) | payer BC ==
[2021-07-31] MEDS ORDERED: Lidocaine 1% 5 ML VIAL INJECT ONE (18:12)
[2021-07-31] MEDS ORDERED: Octyl 2-Cyanoacrylate 1 Tube TOP ONE (18:12)
[2021-07-31 19:12] VITALS: BP 131/78; PULSE 87
== END 2021-07-31 19:12 | disposition home or self-care (01) ==
LOC: MW.ED 17:39
DX: S61.011A Laceration without foreign body of right thumb without damage to nail, initial encounter (principal); W26.0XXA Contact with knife, initial encounter
CPT/HCPCS: 12001; 99282; A9270

== ENCOUNTER 2021-11-29 02:18 | Inpatient (IN) | payer BC ==
[~2021-11-29 02:18] MED LIST: Dexmedetomidine 200 MCG/2 ML SDV IV ONE; Lactated Ringers 1,000 ML IV ONE; Oxytocin/0.9 % Sodium Chloride 30 UNIT/500 ML BAG IV ONE; Ropivacaine HCl/PF 400 MG in Premix Bag 1 BAG IV ONE
[2021-11-29] MEDS ORDERED: Lactated Ringers 1,000 ML IV ONE (02:31)
[2021-11-29] MEDS ORDERED: Ibuprofen 800 MG Tab PO ONE ×2 (08:00→17:53)
== END 2021-11-30 12:00 | disposition home or self-care (01) | DRG 560 ==
LOC: MW.ZCENSUS 02:18 → UNDODISIN 11-30 12:00
PROVIDERS: ADMIT Pediatrics; ATTEND Pediatrics
PROC: 10E0XZZ Delivery of Products of Conception, External Approach (ICD-10-PCS; principal; 2021-11-29)
PROC: 0HQ9XZZ Repair Perineum Skin, External Approach (ICD-10-PCS; 2021-11-29)
PROC: 3E0R3BZ Introduction of Anesthetic Agent into Spinal Canal, Percutaneous Approach (ICD-10-PCS; 2021-11-29)
PROC: 3E0234Z Introduction of Serum, Toxoid and Vaccine into Muscle, Percutaneous Approach (ICD-10-PCS; 2021-11-30)
DX: O48.0 Post-term pregnancy (principal); Z37.0 Single live birth; Z3A.41 41 weeks gestation of pregnancy; O77.0 Labor and delivery complicated by meconium in amniotic fluid; O70.0 First degree perineal laceration during delivery; O26.893 Other specified pregnancy related conditions, third trimester; Z67.41 Type O blood, Rh negative
CPT/HCPCS: 59025; 59409; A9270-GY; J2590; J2795; J7120

== ENCOUNTER 2021-12-06 03:19 | Emergency (ER) | payer BC ==
[2021-12-06] MEDS ORDERED: Sodium Chloride 0.9% 1,000 ML IV ONE (03:37)
[2021-12-06] MEDS ORDERED: Sodium Chloride 0.9% 10 ML Syringe FLUSH PRN (03:37)
[2021-12-06] MEDS ORDERED: Sodium Chloride 0.9% 2.5 ML Syringe FLUSH PRN (03:37)
[2021-12-06 03:53] VITALS: PULSE 87
[2021-12-06] MEDS ORDERED: Ketorolac 30 MG/ML SDV IVPUSH ONE (04:02)
[2021-12-06 04:18] LABS: CARBON DIOXIDE,CO2 25.4 mmol/L (21.0-32.0); POTASSIUM,K 3.7 mmol/L (3.5-5.1)
[2021-12-06 05:14] VITALS: BP 128/70
== END 2021-12-06 05:15 | disposition home or self-care (01) ==
LOC: MW.ED 03:19
DX: O72.2 Delayed and secondary postpartum hemorrhage (principal)
CPT/HCPCS: 36415; 80053; 85025; 96361; 96374; 99284; J1885; J3490; J7030

== ENCOUNTER 2024-04-11 15:19 | Inpatient (IN) | payer BC ==
[2024-04-11] MEDS ORDERED: Sodium Chloride 0.9% 20 ML SDV IV PRN (15:30)
[2024-04-11] MEDS ORDERED: Ondansetron 4 MG/2 ML SDV IVPUSH PRN (15:30)
[2024-04-11] MEDS ORDERED: Methylergonovine 0.2 MG/1 ML Amp IM PRN (15:30)
[2024-04-11] MEDS ORDERED: Tranexamic Acid in NACL,ISO-OS 1,000 MG in Premix Bag 1 BAG IV PRN (15:30)
[2024-04-11] MEDS ORDERED: Water For Irrigation,Sterile 1,000 ML Container IRR PRN (15:30)
[2024-04-11] MEDS ORDERED: Butorphanol 2 MG/ML SDV IVPUSH PRN (15:30)
[2024-04-11] MEDS ORDERED: Sodium Chloride 0.9% 2.5 ML Syringe FLUSH PRN (15:30)
[2024-04-11] MEDS ORDERED: Sodium Chloride 0.9% 10 ML Syringe FLUSH PRN (15:30)
[2024-04-11] MEDS ORDERED: Misoprostol 200 MCG Tab PO PRN (15:30)
[2024-04-11] MEDS ORDERED: Carboprost Tromethamine 250 MCG/1 mL Vial IM PRN (15:30)
[2024-04-11] MEDS ORDERED: Lidocaine 1% 50 ML MDV INJECT PRN (15:30)
[2024-04-11] MEDS: Lactated Ringers 1,000 ML IV SCH (15:50)
[2024-04-11 16:13] LABS: HEMATOCRIT 38.4 % (37.0-47.0); HEMOGLOBIN 13.5 g/dL (12.0-16.0); MEAN CORPUSCULAR HEMOGLOBIN 30.3 pg (28.0-32.0); MEAN CORPUSCULAR HGB CONC 35.2 g/dL (32.0-36.0); MEAN CORPUSCULAR VOLUME 86.3 fL (83.0-99.0); MEAN PLATELET VOLUME 12.1 fL (9.4-12.3); PLATELET COUNT,PLT 151 K/uL (150-400); RED BLOOD CELL COUNT 4.45 M/uL (4.10-5.30); WHITE BLOOD CELL COUNT,WBC 12.74 K/uL (3.9-11.3)
[2024-04-11] MEDS ORDERED: Lidocaine 1% 2 ML ONE (16:15)
[2024-04-11] MEDS ORDERED: Ropivacaine HCl/PF 200 ML ONE (16:15)
[2024-04-11] MEDS ORDERED: Bupivacaine 0.5% 10 ML SDV ONE (16:15)
[2024-04-11] MEDS ORDERED: dexmedeTOMIDine HCl 200 MCG/2 ML SDV EPIDUR SCH (16:15)
[2024-04-11] MEDS ORDERED: ePHEDrine 50 MG/ML SDV IM PRN (16:15)
[2024-04-11] MEDS ORDERED: ePHEDrine 50 MG/ML SDV IVPUSH PRN (16:15)
[2024-04-11] MEDS ORDERED: Phenylephrine HCl In 0.9% NaCl 1 MG/10 ML Syringe IVPUSH PRN (16:15)
[2024-04-11] MEDS ORDERED: Bupivacaine 0.5% 10 ML SDV INJECT ONE (16:15)
[2024-04-11] MEDS ORDERED: Phenylephrine HCl In 0.9% NaCl 1 MG/10 ML Syringe ONE (16:16)
[2024-04-11 16:19] LABS: AMPHETAMINES SCREEN, URINE NEGATIVE (CUTOFF=500); BARBITURATE SCREEN,URINE NEGATIVE (CUTOFF=200); BENZODIAZEPINES SCREEN,URINE NEGATIVE (CUTOFF=150); BUPRENORPHINE SCREEN,URINE NEGATIVE (CUTOFF=10); METHADONE SCREEN, URINE NEGATIVE (CUTOFF=200); METHAMPHETAMINES SCREEN, URINE NEGATIVE (CUTOFF=500); OXYCODONE SCREEN,URINE NEGATIVE (CUT0FF=100); PCP SCREEN,URINE NEGATIVE (CUTOFF=25); THC SCREEN,URINE 20 NG/ML NEGATIVE (CUTOFF=50)
[2024-04-11] MEDS: Ropivacaine HCl/PF 400 MG in Premix Bag 1 BAG EPIDUR SCH (16:57)
[2024-04-11 17:40] LABS: C. TRACHOMATIS BY PCR NOT DETECTED; N. GONORRHOEAE BY PCR NOT DETECTED
[2024-04-11] MEDS: Oxytocin/0.9 % Sodium Chloride 30 UNIT/500 ML BAG IV SCH (20:44)
[2024-04-11] MEDS ORDERED: Docusate Sodium 100 MG Cap PO PRN (20:55)
[2024-04-11] MEDS ORDERED: Aluminum Hydroxide/Magnesium Hydroxide/Simethicone Susp 30 ML Cup PO PRN (20:55)
[2024-04-11] MEDS ORDERED: Benzocaine/Menthol 20%-0.5% Spray 78 GM Cannister TOP PRN (20:55)
[2024-04-11] MEDS ORDERED: Witch Hazel Medicated Pads 40/Jar TOP PRN (20:55)
[2024-04-11] MEDS ORDERED: Lanolin 100% Cream 7 GM Tube TOP PRN (20:55)
[2024-04-11] MEDS ORDERED: Simethicone 80 MG Tab.Chew PO PRN (20:55)
[2024-04-11] MEDS ORDERED: Acetaminophen 500 MG Tab PO PRN (20:55)
[2024-04-11 21:19] LABS: PH,UMBILICAL ARTERIAL 7.131 (7.18-7.38); PH,UMBILICAL VENOUS 7.284 (7.25-7.45)
[2024-04-12] MEDS: Ibuprofen 800 MG Tab PO PRN (03:00)
[2024-04-13 13:47] VITALS: BP 124/74; PULSE 90
== END 2024-04-13 14:30 | disposition home or self-care (01) | DRG 560 ==
LOC: MW.OBCHECK 15:19 → MW.OB 15:21 → MW.OBCHECK 15:30 → OBSVTOIN 20:37 → MW.OB 04-12 00:25
PROVIDERS: ADMIT Obstetrics & Gynecology; ATTEND Obstetrics & Gynecology
PROC: 10E0XZZ Delivery of Products of Conception, External Approach (ICD-10-PCS; principal; 2024-04-11)
PROC: 10907ZC Drainage of Amniotic Fluid, Therapeutic from Products of Conception, Via Natural or Artificial Opening (ICD-10-PCS; 2024-04-11)
PROC: 3E0R3BZ Introduction of Anesthetic Agent into Spinal Canal, Percutaneous Approach (ICD-10-PCS; 2024-04-11)
PROC: 00HU33Z Insertion of Infusion Device into Spinal Canal, Percutaneous Approach (ICD-10-PCS; 2024-04-11)
DX: O48.0 Post-term pregnancy (principal); Z37.0 Single live birth; E66.811 Obesity, class 1; O36.0930 Maternal care for other rhesus isoimmunization, third trimester, not applicable or unspecified; O69.81X0 Labor and delivery complicated by cord around neck, without compression, not applicable or unspecified; O77.0 Labor and delivery complicated by meconium in amniotic fluid; O99.214 Obesity complicating childbirth; O76 Abnormality in fetal heart rate and rhythm complicating labor and delivery; Z3A.41 41 weeks gestation of pregnancy; Z67.91 Unspecified blood type, Rh negative; Z87.59 Personal history of other complications of pregnancy, childbirth and the puerperium
CPT/HCPCS: 36415; 59025; 59409; 76815; 76815-26; 80305; 82803; 85027; 86592; 86762; 86803; 86850; 86900; 86901; 87340; 87389; 87491; 87591; A9270-GY; J0665; J2003; J2371; J2590; J2795; J7120